=== PATIENT | female | born 1985 | race African-American/Black ===

== ENCOUNTER 2017-03-11 13:35 | Outpatient (CLI) | payer OTHER ==
[2017-03-11 14:21] VITALS: BP 110/73
== END 2017-03-11 14:45 | disposition home or self-care (01) ==
LOC: TRG 13:35
PROVIDERS: ATTEND Obstetrics & Gynecology
DX: O47.1 False labor at or after 37 completed weeks of gestation (principal); Z3A.39 39 weeks gestation of pregnancy